=== PATIENT | female | born 1990 | race Caucasian/White ===

== ENCOUNTER 2017-03-26 22:15 | Emergency (ER) | payer OTHER ==
[2017-03-26 22:21] VITALS: BP 147/92; PULSE 96; RESP 16; TEMP 98.4; O2SAT 97
--- NOTE | 2017-03-26 22:22 | EDPHY ---
H & P Stated Complaint: pt says she grabbed a hot lauren, burning palm/fingers of R hand4 Time Seen by Provider: 03/26/17 22:22 HPI/ROS: HPI CHIEF COMPLAINT: [ ] HISTORY OF PRESENT ILLNESS: [Need 4: Location, Duration, Severity, Quality, Context, Timing Modifying Factors, Associated S&S] Past Medical History: Past Surgical History: Social History: Family History: ROS REVIEW OF SYSTEMS: A comprehensive 10 point review of systems is otherwise negative aside from elements mentioned in the history of present illness. Exam Constitutional triage nursing summary reviewed, vital signs reviewed, awake/ alert. Eyes normal conjunctivae and sclera, EOMI, PERRLA. HENT normal inspection, atraumatic, moist mucus membranes, no epistaxis, neck supple/ no meningismus, no raccoon eyes. Respiratory clear to auscultation bilaterally, normal breath sounds, no respiratory distress, no wheezing. Cardiovascular rate normal, regular rhythm, no murmur, no edema, distal pulses normal. Gastrointestinal soft, non-tender, no rebound, no guarding, normal bowel sounds, no distension, no pulsatile mass. Genitourinary no CVA tenderness. Musculoskeletal no midline vertebral tenderness, full range of motion, no calf swelling, no tenderness of extremities, no meningismus, good pulses, neurovascularly intact. Skin pink, warm, & dry, no rash, skin atraumatic. Neurologic awake, alert and oriented x 3, AAOx3, moves all 4 extremities equally, motor intact, sensory intact, CN II-XII intact, normal cerebellar, normal vision, normal speech. Psychiatric normal mood/affect. Heme/Lymph/Immune no lymphadenopathy. Differential Diagnosis: Medical Decision Making: Re-evaluation: Source: Patient - Personal History Current Tetanus Diphtheria and Acellular Pertussis (TDAP): Yes - Medical/Surgical History Hx Asthma: No Hx Chronic Respiratory Disease: No Hx Diabetes: No Hx Cardiac Disease: No Hx Renal Disease: No Hx Cirrhosis: No Hx Alcoholism: No Hx HIV/AIDS: No Hx Splenectomy or Spleen Trauma: No Other PMH: none - Social History Smoking Status: Former smoker Constitutional: Initial Vital Signs Temperature (C) 36.9 C 03/26/17 22:18 Heart Rate 96 03/26/17 22:18 Respiratory Rate 16 03/26/17 22:18 Blood Pressure 147/92 H 03/26/17 22:18 O2 Sat (%) 97 03/26/17 22:18 O2 Delivery Mode Room Air Allergies/Adverse Reactions: No Known Allergies Allergy (Unverified 03/26/17 22:21) Home Medications: Medication Instructions Recorded NK [No Known Home Meds] 03/26/17 Departure - Departure Referrals: NONE *PRIMARY CARE P,. [Primary Care Provider] - As per Instructions
--- NOTE | 2017-03-26 22:47 | EDPHY ---
H & P Time Seen by Provider: 03/26/17 22:22 HPI/ROS: CHIEF COMPLAINT: Right palmar burn HISTORY OF PRESENT ILLNESS: 26-year-old female otherwise healthy with up-to- date tetanus grabbed a hot pain and sustained superficial thickness burn to her right hand earlier this evening. No immersion injury. No circumferential burn. No paresthesia. Primary complaint is pain. PHYSICAL EXAM (Prior to examination, patient consented to physical exam, hands were washed and my usual and customary physical exam procedures followed) 1) GENERAL: Well-developed, well-nourished, alert and oriented. Appears nontoxic . 2) HEAD: Normocephalic 3) HEENT: sclera anicteric 4) LUNGS: Breathing comfortably. 5) SKIN: the patient's right hand palmar aspect she has evidence of superficial thickness burn, no blistering, no eschar, negative kanavel 6) MUSCULOSKELETAL: full sensation to all digits. No contracture. Smoking Status: Former smoker Constitutional: Initial Vital Signs Temperature (C) 36.9 C 03/26/17 22:18 Heart Rate 96 03/26/17 22:18 Respiratory Rate 16 03/26/17 22:18 Blood Pressure 147/92 H 03/26/17 22:18 O2 Sat (%) 97 03/26/17 22:18 O2 Delivery Mode Room Air Allergies/Adverse Reactions: No Known Allergies Allergy (Unverified 03/26/17 22:21) Home Medications: Medication Instructions Recorded NK [No Known Home Meds] 03/26/17 MDM/Departure - [facility] ED Course/Re-evaluation: This patient's wounds have been treated with antibiotic ointment and nonstick dressing. She has been given analgesia. We discussed the potential complications of anderson to the hand including, but not limited to, chronic contracture. I recommended follow-up with Hand surgery on outpatient basis for follow-up. She is agreeable with this. - Depart Disposition: Home, Routine, Self-Care Clinical Impression: Superficial partial thickness burn of digit of hand Condition: Good Instructions: Superficial Burn (ED), Narcotic-Analgesic/Acetaminophen (By mouth ) Additional Instructions: Return to the ER if you develop redness, swelling, discharge, warmth to the wound, red streaks going up your arm , or any other symptoms that concern you. Recommend you follow up with a hand surgeon as anderson to the hand can sometimes result in chronic contracture. Referrals: Kimo Valle MD [Medical Doctor] - 5-7 days, call for appt.
[2017-03-26] MEDS ORDERED: HYDROCOD/APAP 5/325 PREPACK#6 BTL TAKEHOME ONE (22:48)
[2017-03-26] MEDS ORDERED: IBUPROFEN 600 MG TAB PO ONE ×2 (22:55→22:58)
== END 2017-03-26 23:15 | disposition home or self-care (01) ==
PROC: 0HDFXZZ Extraction of Right Hand Skin, External Approach (ICD-10-PCS; principal; 2017-03-26)
DX: T23.251A Burn of second degree of right palm, initial encounter (principal); T31.0 Burns involving less than 10% of body surface; Z87.891 Personal history of nicotine dependence; Y27.8XXA Contact with other hot objects, undetermined intent, initial encounter; Y92.89 Other specified places as the place of occurrence of the external cause; Y99.8 Other external cause status; Y93.89 Activity, other specified